=== PATIENT | female | born 1990 | race Caucasian/White ===

== ENCOUNTER 2022-12-18 08:45 | Inpatient (IN) | payer OTHER ==
[~2022-12-18] VITALS: Ht 152.4 cm; Wt 66.7 kg
--- NOTE | 2022-12-18 09:33 | NUR ---
PATIENT HAS BEEN SCREENED AND CATEGORIZED LOW NUTRITION RISK. PATIENT WILL BE SEEN WITHIN 7 DAYS OF ADMISSION. 12/25/22 REVIEWED BY KARLA FUNK RD
[2022-12-18 10:00] LABS: BASOPHILS % (AUTO) 0.4 % (0.0-2.0); EOSINOPHILS % (AUTO) 0.3 % (0.0-4.0); HEMATOCRIT 30.1 % (36-48); HEMOGLOBIN 10.3 g/dL (12.0-16.0); LYMPHOCYTES # (AUTO) 1.7 K/uL (2.5-16.5); LYMPHOCYTES % (AUTO) 17.3 % (20.5-51.1); MEAN CORPUSCULAR HEMOGLOBIN 28 pg (27-31); MEAN CORPUSCULAR HGB CONC 34 g/dL (33-37); MEAN CORPUSCULAR VOLUME 82.3 fL (80-94); MONOCYTES # (AUTO) 0.5 K/uL (0.8-1.0); MONOCYTES % (AUTO) 5.5 % (1.7-9.3); NEUTROPHILS # (AUTO) 7.6 K/uL (1.8-7.7); NEUTROPHILS % (AUTO) 76.5 % (42.2-75.2); PLATELET COUNT (AUTO) 248 K/uL (140-450); RED BLOOD CELL COUNT(AUTO) 3.66 MIL/uL (4.20-5.40); WHITE BLOOD COUNT (AUTO) 9.9 K/uL (4.8-10.8)
[2022-12-18] MEDS ORDERED: CITRIC ACID/SODIUM CITRATE 30 ML UDC PO ONE (10:00)
[2022-12-18] MEDS ORDERED: CARBOPROST 250 MCG/ML AMP IM PRN (10:00)
[2022-12-18] MEDS ORDERED: OXYTOCIN 10 UNITS/ML VIAL IM SCH (10:00)
[2022-12-18] MEDS ORDERED: METHYLERGONOVINE 0.2 MG/ML AMP IM PRN ×2 (10:00→18:10)
[2022-12-18 10:17] LABS: ALBUMIN 3.1 g/dL (3.4-5.0); ANION GAP 12.9 (8-16); CARBON DIOXIDE 24.7 mmol/L (21-32); CREATININE 0.5 mg/dL (0.6-1.3); POTASSIUM 4.6 mmol/L (3.5-5.1); TOTAL BILIRUBIN 0.3 mg/dL (0.0-1.0)
[2022-12-18 10:18] LABS: PROTHROMBIN TIME 9.7 secs (10.8-13.4)
[2022-12-18] MEDS: LACTATED RINGERS 1,000 ML IV SCH ×2 (10:35→11:15)
[2022-12-18] MEDS ORDERED: TERBUTALINE 1 MG/ML VIAL SUBQ SCH (10:35)
[2022-12-18] MEDS ORDERED: TERBUTALINE 1 MG/ML VIAL SUBQ ONE (10:36)
[2022-12-18 10:51] VITALS: BP 108/69
[2022-12-18 11:44] LABS: APPEARANCE,URINE HAZY (CLEAR)
[2022-12-18 11:45] LABS: COLOR,URINE YELLOW (YELLOW); UGLUCOSE NEGATIVE (NEGATIVE)
[2022-12-18 11:46] LABS: BILIRUBIN,URINE NEGATIVE (NEGATIVE); BLOOD, URINE NEGATIVE (NEGATIVE); LEUKOCYTE ESTERASE ,URINE TRACE (NEGATIVE); NITRITE, URINE NEGATIVE (NEGATIVE)
[2022-12-18 11:54] LABS: WBC,URINE 0-5 /HPF (0-5)
[2022-12-18] MEDS ORDERED: ceFAZolin 2,000 MG VIAL ONE (16:03)
[2022-12-18] MEDS ORDERED: MORPHINE PRES FREE 10 MG/10 ML AMP IV ONE (18:05)
[2022-12-18] MEDS ORDERED: TEMAZEPAM 15 MG CAP PO PRN (18:10)
[2022-12-18] MEDS ORDERED: ONDANSETRON 4 MG/2 ML VIAL IVP PRN (18:30)
[2022-12-18] MEDS ORDERED: OXYTOCIN 20 UNITS in LACTATED RINGERS 1,000 ML IV SCH (18:30)
[2022-12-18] MEDS ORDERED: diphenhydrAMINE 50 MG/ML VIAL IVP PRN (18:30)
[2022-12-18] MEDS ORDERED: NALOXONE 0.4 MG/ML VIAL IVP PRN (18:30)
[2022-12-18] MEDS ORDERED: KETOROLAC 30 MG/ML VIAL IVP PRN (18:30)
[2022-12-18] MEDS ORDERED: OXYTOCIN 20 UNITS/LR PREMIX 1,000 ML IV ONE (19:38)
[2022-12-18] MEDS: OXYTOCIN 20 UNITS in LACTATED RINGERS 1,000 ML IV SCH (20:12)
[2022-12-18] MEDS: DOCUSATE SOD/SENNA 50/8.6 MG 1 TAB PO SCH (21:00)
[2022-12-19] MEDS ORDERED: OXYTOCIN 20 UNITS/LR PREMIX 1,000 ML IV ONE ×2 (03:22→11:48)
[2022-12-19] MEDS: OXYTOCIN 20 UNITS in LACTATED RINGERS 1,000 ML IV SCH ×2 (03:54→12:00)
[2022-12-19] MEDS ORDERED: oxyCODONE/APAP 5/325 MG 1 TAB TAB PO PRN (05:00)
[2022-12-19 05:56] LABS: BASOPHILS % (AUTO) 0.1 % (0.0-2.0); EOSINOPHILS % (AUTO) 0.1 % (0.0-4.0); LYMPHOCYTES # (AUTO) 1.2 K/uL (2.5-16.5); LYMPHOCYTES % (AUTO) 11.1 % (20.5-51.1); MEAN CORPUSCULAR HEMOGLOBIN 28 pg (27-31); MEAN CORPUSCULAR HGB CONC 33 g/dL (33-37); MEAN CORPUSCULAR VOLUME 83.8 fL (80-94); MONOCYTES # (AUTO) 0.6 K/uL (0.8-1.0); MONOCYTES % (AUTO) 5.7 % (1.7-9.3); NEUTROPHILS # (AUTO) 9.2 K/uL (1.8-7.7); PLATELET COUNT (AUTO) 185 K/uL (140-450); RED BLOOD CELL COUNT(AUTO) 2.33 MIL/uL (4.20-5.40); WHITE BLOOD COUNT (AUTO) 11.1 K/uL (4.8-10.8)
[2022-12-19 06:25] LABS: HEMATOCRIT 19.5 % (36-48); HEMOGLOBIN 6.5 g/dL (12.0-16.0)
[2022-12-19] MEDS: KETOROLAC 30 MG/ML VIAL IVP PRN ×2 (13:49→19:59)
[2022-12-19] MEDS ORDERED: PNV1COMB PO (14:02)
[2022-12-19] MEDS: oxyCODONE/APAP 5/325 MG 1 TAB TAB PO PRN (17:17)
[2022-12-19] MEDS: DOCUSATE SOD/SENNA 50/8.6 MG 1 TAB PO SCH (20:31)
[2022-12-20] MEDS: oxyCODONE/APAP 5/325 MG 1 TAB TAB PO PRN ×3 (00:01→15:57)
[2022-12-20] MEDS: IBUPROFEN 800 MG TAB PO PRN ×3 (04:03→21:13)
[2022-12-20] MEDS: SIMETHICONE 80 MG TAB.CHEW PO PRN ×2 (08:09→11:39)
[2022-12-20] MEDS: DOCUSATE SOD/SENNA 50/8.6 MG 1 TAB PO SCH (21:15)
[2022-12-21] MEDS ORDERED: FLU VACCINE QS2022-23 0.5 ML SYR IMVAC ONE (00:05)
[2022-12-21] MEDS ORDERED: CAMERA MC ONE (03:24)
[2022-12-21] MEDS: oxyCODONE/APAP 5/325 MG 1 TAB TAB PO PRN ×2 (04:53→10:42)
[2022-12-21] MEDS: SIMETHICONE 80 MG TAB.CHEW PO PRN (08:25)
== END 2022-12-21 13:15 | disposition home or self-care (01) | DRG 540 ==
LOC: MFCC 08:45 → OBSVTOIN 09:00 → MFCC 20:20
PROVIDERS: ADMIT Obstetrics & Gynecology; ATTEND Obstetrics & Gynecology
PROC: 10D00Z1 Extraction of Products of Conception, Low, Open Approach (ICD-10-PCS; principal; 2022-12-18 13:00)
DX: O34.211 Maternal care for low transverse scar from previous cesarean delivery (principal); R71.0 Precipitous drop in hematocrit; Z20.822 Contact with and (suspected) exposure to COVID-19; Z37.0 Single live birth; Z3A.38 38 weeks gestation of pregnancy
CPT/HCPCS: 36415; 51702; 80053; 81001; 85025; 85610; 85730; 86592; 86886; 86900; 86901; 90715; J1885; J2270; J2590; J3105; J7120